=== PATIENT | male | born 1945 | race Caucasian/White ===

== ENCOUNTER → 2017-12-09 | Outpatient (CLI) | payer MEDICARE ==
[~2017-12-09] MED LIST: ASPI1TAB57 PO; CILO100T PO; CYCL10TA PO; DIGO0.12 PO; FISH1000; LEXA20TA PO; METF500 PO; METO50TA PO; PERC10TA27 PO; PLAV75TA29 PO; PRAV40TA PO; PRAV80TA PO; PRIN10TA PO
--- NOTE | 2017-12-13 13:55 | RSPPFT ---
DATE OF PROCEDURE: 12/09/17 COMMENTS: VOLUMES DYNAMIC: FVC and FEV1 normal. STATIC: FRC, RV and TLC normal. FLOWS: FEV1% normal; FEF 25-75 mildly reduced. DIFFUSION: Mildly reduced. FLOW VOLUME LOOP: Terminal airflow obstruction. IMPRESSION: Mild terminal airflow obstruction with a mild reduction in diffusion and no significant improvement post-bronchodilator.
== END ==
LOC: PHRSP 08:45
PROVIDERS: ATTEND Internal Medicine
DX: J44.9 Chronic obstructive pulmonary disease, unspecified (principal)
CPT/HCPCS: 36600; 82805; 94060; 94729